=== PATIENT | female | born 1960 | race Caucasian/White ===

== ENCOUNTER 2018-03-04 12:06 | Emergency (ER) | payer OTHER ==
[~2018-03-04] VITALS: Ht 165.1 cm; Wt 61.4 kg
[~2018-03-04 12:06] MED LIST: BUTA1CAP39 PO; MECL25TA2 PO; ZOF8 PO
[2018-03-04 12:09] VITALS: Ht 165.1 cm; Wt 61.4 kg
--- NOTE | 2018-03-04 12:32 | ERD ---
ER Documentation Chief Complaint Chief Complaint dizziness since yesterday, shoulder pain x3 days HPI 57-year-old female ambulatory to the ED for evaluation of dizziness and weakness. Patient reports recent generalized weakness but denies headache, visual changes, focal weakness or numbness. Yesterday after standing from a seated position expressed acute onset of lightheadedness, dizziness, palpitations and weakness which resolved after lying down for 15 minutes. Explained to other episodes yesterday of similar symptoms under the same conditions. There was no accounting chest pain, shortness of breath diaphoresis. Denies abdominal pain, nausea, vomiting, diarrhea or constipation. No URI symptoms, cough or sputum production. No skin rash. Denies neck or back pain. No leg pain or swelling. Denies recent heat or cold intolerance. No anorexia, weight loss, night sweats, fevers or chills. ROS All systems reviewed and are negative except as per history of present illness. Medications Home Meds Active Scripts Undnejriwller-Lookrfsoac-Drqrqqgu-Codeine* (Fioricet w/ Codeine*) [id number]-[id number] Capsule, 2 CAP PO Q6H PRN for PAIN LEVEL 1-5, #20 CAP Prov:DARCI HAYS MD 02/03/15 Ondansetron Hcl* (Zofran* ODT) 8 mg -ODT Tab.disper, 8 MG PO Q6 PRN for NAUSEA AND/OR VOMITING, #10 TAB Prov:DARCI HAYS MD 02/03/15 Meclizine Hcl* (Antivert*) 25 Mg Tablet, 50 MG PO Q6H for DIZZINESS, #20 TAB Prov:DARCI HAYS MD 02/03/15 Allergies Allergies: Coded Allergies: No Known Drug Allergies (Verified Allergy, Unknown, 07/05/13) PMhx/Soc Reviewed Anesthesia Reaction: No Hx Neurological Disorder: No Hx Respiratory Disorders: No Hx Cardiac Disorders: No Hx Psychiatric Problems: No Hx Miscellaneous Medical Probl: No Hx Alcohol Use: Yes (SOCIALLY) Hx Substance Use: No Hx Tobacco Use: No FmHx No cancer, sudden cardiac or stroke. Physical Exam Vitals Vital Signs Date Temp Pulse Resp B/P (MAP) Pulse Ox O2 O2 Flow FiO2 Time Delivery Rate 03/04/18 98.4 95 18 99/64 (76) 99 Room Air 15:53 03/04/18 60 108/72 100 Room Air 13:38 (84) 112/75 (87) 119/73 (88) 03/04/18 97.7 56 16 120/67 100 Room Air 12:49 (84) 03/04/18 97.8 73 18 137/78 99 12:09 (97) Physical Exam Const: No acute distress Head: Atraumatic Eyes: Pupils equal react to light, extraocular movements are intact. No nystagmus. Normal Conjunctiva ENT: Normal External Ears, Nose and Mouth. Neck: Full range of motion. Nontender. Carotids 2+ bilaterally without bruits. No JVD. No meningismus. Resp: Breath sounds are equal and clear to auscultation bilaterally Cardio: Regular rate and rhythm, no murmurs, gallops or rubs. Abd: Soft, non tender, non distended. Normal bowel sounds. No masses or abnormal pulsations. Skin: No petechiae or rashes Back: No midline or flank tenderness Ext: No cyanosis, or edema. Pulses 4+ in all extremities. Neur: Awake and alert. Cranial nerves II through XII are intact. Motor and sensory equal bilaterally. DTRs are symmetrical. Normal gait. Psych: Normal Mood and Affect. Patient does not appear anxious or depressed. Result Diagram: 03/04/18 1331 03/04/18 1331 Results 24 hrs Laboratory Tests Test 03/04/18 13:31 White Blood Count 6.4 10^3/ul Red Blood Count 4.54 10^6/ul Hemoglobin 13.6 g/dl Hematocrit 41.7 % Mean Corpuscular Volume 91.9 fl Mean Corpuscular Hemoglobin 30.0 pg Mean Corpuscular Hemoglobin Concent 32.6 g/dl Red Cell Distribution Width 12.7 % Platelet Count 269 10^3/UL Mean Platelet Volume 9.3 fl Immature Granulocytes % 0.300 % Neutrophils % 59.5 % Lymphocytes % 31.2 % Monocytes % 7.1 % Eosinophils % 1.4 % Basophils % 0.5 % Nucleated Red Blood Cells % 0.0 /100WBC Immature Granulocytes # 0.020 10^3/ul Neutrophils # 3.8 10^3/ul Lymphocytes # 2.0 10^3/ul Monocytes # 0.5 10^3/ul Eosinophils # 0.1 10^3/ul Basophils # 0.0 10^3/ul Nucleated Red Blood Cells # 0.0 10^3/ul Sodium Level 140 mmol/L Potassium Level 4.2 mmol/L Chloride Level 104 mmol/L Carbon Dioxide Level 28 mmol/L Anion Gap 8 Blood Urea Nitrogen 16 mg/dl Creatinine 0.60 mg/dl Est Glomerular Filtrat Rate mL/min > 60 mL/min Glucose Level 89 mg/dl Calcium Level 9.5 mg/dl Troponin I < 0.012 ng/ml Thyroid Stimulating Hormone (TSH) 1.990 MIU/L Procedures/MDM DOCUMENTS REVIEWED: ED nurse, prior ED, prior records EKG: Time: 1317. Sinus bradycardia. Ventricular rate 56. Normal [place] QRS. No ST segment elevation or depression. Normal QT interval. Normal axis. No ectopy. My Interpretation MEDICAL DECISION MAKIN-year-old female ambulatory to the ED for evaluation of 3 episodes of dizziness and weakness that occurred yesterday upon standing. CBC is negative for anemia, leukocytosis or thrombocytopenia. Chemistry reveals no evidence of electrolyte abnormalities or renal insufficiency. EKG reveals sinus bradycardia but no heart block, ectopy or ischemic changes. Patient has no headache, focal deficits or indication for neuroimaging. History consistent with episodes of orthostatic hypotension although orthostatic vital signs today are unremarkable and no further dizziness upon standing. No evidence of cardiac dysrhythmia or heart block. Patient observed in the ED for over 3 hours and is asymptomatic. Vital signs are normal. Abdominal exam is benign and occult intra-abdominal process including but not limited to abdominal aortic aneurysm is unlikely. In the absence of signs of serious disease patient is appropriate for further outpatient workup and is stable for discharge with precautionary instructions and outpatient follow-up as counseled. Counseled patient and family regarding diagnostic workup, diagnosis and need for followup. Understands to return to ED if symptoms recur, worsen or any other concerns. Departure Diagnosis: Primary Impression: Weakness Additional Impression: Orthostatic dizziness Condition: Stable VAN PELLETIER MD Mar 04, 2018 12:32
[2018-03-04 15:53] VITALS: BP 99/64; PULSE 95; RESP 18
== END 2018-03-04 15:56 | disposition home or self-care (01) ==
LOC: E/R 12:06
DX: R42 Dizziness and giddiness (principal); R40.2252 Coma scale, best verbal response, oriented, at arrival to emergency department; R53.1 Weakness; R40.2362 Coma scale, best motor response, obeys commands, at arrival to emergency department; R40.2142 Coma scale, eyes open, spontaneous, at arrival to emergency department
CPT/HCPCS: 36415; 71045; 80048; 84443; 84484; 85025; 93005; Z7502

== ENCOUNTER 2018-06-13 12:11 | Emergency (ER) | payer OTHER ==
[~2018-06-13] VITALS: Wt 63.9 kg
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
[2018-06-13] MEDS ORDERED: KETOROLAC 15 MG INJ IM STA (13:34)
[2018-06-13] MEDS ORDERED: IBUP-1561 PO (14:49)
[2018-06-13] MEDS ORDERED: BACL10TA PO (14:49)
[2018-06-13 14:59] VITALS: BP 129/74; PULSE 69; RESP 18
== END 2018-06-13 15:00 | disposition home or self-care (01) ==
LOC: FTE 12:11
DX: T14.8XXA Other injury of unspecified body region, initial encounter (principal); V49.49XA Driver injured in collision with other motor vehicles in traffic accident, initial encounter
CPT/HCPCS: 71110; 96372; J1885; Z7502